=== PATIENT | female | born 1970 | race Caucasian/White ===

== ENCOUNTER 2018-01-08 13:04 | Observation (INO) | payer SELFPAY ==
[~2018-01-08] VITALS: Ht 170.2 cm; Wt 118.8 kg
--- NOTE | 2018-01-08 13:46 | ED EENT ---
History of Present Illness General Chief Complaint: Oral/Throat Problems Stated Complaint: ABSCESS IN NECK Source: patient Exam Limitations: no limitations (LILLIAN BLUE MD) History of Present Illness Date Seen by Provider: Jan 08, 2018 Time Seen by Provider: 13:41 Initial Comments The patient is a 47-year-old white female sent here from [place] by [facility]. She had been examined there after presenting with throat pain and was found to have an apparent mass or abscess which could be palpated at the angle of the mandible and was causing enough swelling to deviate the uvula to the right. She has no past history of dental abscesses or other head and neck infections. Symptoms began late Friday or certainly by early Friday Timing/Duration: yesterday Location: throat Prearrival Treatment: no prearrival treatment Associated Symptoms: sore throat (LILLIAN BLUE MD) Allergies and Home Medications Allergies Coded Allergies: No Known Drug Allergies (Unverified , 01/08/18) Patient Home Medication List Home Medication List Reviewed: Yes (LILLIAN BLUE MD) Review of Systems Constitutional: see HPI Eyes: No Symptoms Reported Ears: No Symptoms Reported Nose: no symptoms reported Mouth: see HPI Throat: swelling, painful swallowing Respiratory: no symptoms reported Cardiovascular: no symptoms reported Gastrointestinal: no symptoms reported (LILLIAN BLUE MD) Past Jwhcgaa-Vmbtta-Oqwghq Hx Patient Social History Recent Foreign Travel: No Contact w/Someone Who Travel: No (LILLIAN BLUE MD) Physical Exam Vital Signs Vital Signs - First Documented 01/08/18 13:08 Temp 98.7 Pulse 100 Resp 18 B/P (MAP) 172/113 (132) Pulse Ox 98 O2 Delivery Room Air (VICKEY LEONE APRN) General Appearance: mild distress Eyes: bilateral eye normal inspection Ears: bilateral ear auricle normal Nose: normal inspection Cardiovascular: normal peripheral pulses, regular rate, rhythm, no edema, no gallop, no JVD, no murmur Respiratory: chest non-tender, lungs clear, normal breath sounds, no respiratory distress, no accessory muscle use Gastrointestinal: normal bowel sounds, non tender, soft, no organomegaly, no pulsatile mass, tenderness, spleenomegaly There is a 3 cm palpable fluctuant tender area at the angle of the mandible on the left. Examination of the throat shows a contiguous mass effect in the pharynx with projection to the midline and deviation of the uvula to the right. (LILLIAN BLUE MD) Procedures/Interventions I&D : Blade Size: [address] Blue at the bedside I did anesthetize the leftposterior soft palate and tonsillar pillar region with 2% lidocaine with epinephrine totaling 1 mL..This area was then closed with an 18-gauge 1/2 inch needle guard at 1.5 cm. An area of sinus material was encountered I was able to aspirate about 1.5- 2mlof sinus material. Curved hemostats were then gently inserted about 1 cm into this area. Continued slow drainage of blood/sanguinous material. (VICKEY LEONE APRN) Progress/Results/Core Measures Lab Results Laboratory Tests Test 01/08/18 13:52 Range/Units White Blood Count 20.9 H 4.3-11.0 10^3/uL Red Blood Count 4.49 4.35-5.85 10^6/uL Hemoglobin 12.2 11.5-16.0 G/DL Hematocrit 38 35-52 % Mean Corpuscular Volume 84 80-99 FL Mean Corpuscular Hemoglobin 27 25-34 PG Mean Corpuscular Hemoglobin Concent 32 32-36 G/DL Red Cell Distribution Width 15.7 H 10.0-14.5 % Platelet Count 386 130-400 10^3/uL Mean Platelet Volume 10.2 7.4-10.4 FL Neutrophils (%) (Auto) 81 H 42-75 % Lymphocytes (%) (Auto) 10 L 12-44 % Monocytes (%) (Auto) 9 0-12 % Eosinophils (%) (Auto) 0 0-10 % Basophils (%) (Auto) 0 0-10 % Neutrophils # (Auto) 16.9 H 1.8-7.8 X 10^3 Lymphocytes # (Auto) 2.1 1.0-4.0 X 10^3 Monocytes # (Auto) 1.8 H 0.0-1.0 X 10^3 Eosinophils # (Auto) 0.1 0.0-0.3 10^3/uL Basophils # (Auto) 0.0 0.0-0.1 10^3/uL Neutrophils % (Manual) 82 % Lymphocytes % (Manual) 14 % Monocytes % (Manual) 4 % Blood Morphology Comment NORMAL (VICKEY LEONE APRN) My Orders Orders - VICKEY LEONE APRN Dexamethasone Injection (Decadron Inject (01/08/18 14:45) Cefuroxime Injection (Zinacef Injection) (01/08/18 14:45) Lidocaine/Epi 2% 1:100,000 (Xylocaine/Ep (01/08/18 14:45) Fentanyl Injection (Sublimaze Injection (01/08/18 14:45) (VICKEY LEONE APRN) Medications Given in ED Current Medications Medications Dose Ordered Sig/Gilmar Route Start Time Stop Time Status Last Admin Dose Admin Fentanyl Citrate 50 mcg ONCE ONCE IVP 01/08/18 14:45 01/08/18 14:46 DC 01/08/18 14:55 50 MCG Iohexol 100 ml ONCE ONCE IV 01/08/18 14:00 01/08/18 14:01 DC 01/08/18 14:16 100 ML Lidocaine/ Epinephrine 20 ml ONCE ONCE INJ 01/08/18 14:45 01/08/18 14:46 DC 01/08/18 14:58 20 ML Sodium Chloride 10 ml NEEDED PRN IV 01/08/18 14:00 01/08/18 14:16 10 ML Sodium Chloride 250 ml ONCE ONCE IV 01/08/18 14:00 01/08/18 14:01 DC 01/08/18 14:16 80 ML (VICKEY LEONE APRN) Vital Signs/I&O 01/08/18 13:08 Temp 98.7 Pulse 100 Resp 18 B/P (MAP) 172/113 (132) Pulse Ox 98 O2 Delivery Room Air (VICKEY LEONE APRN) Progress Note : Progress Note 1526- upon reexam, tthere is no active bleeding or oozing at this time from the incision. She states "it doesn't feel as swollen as it did". (VICKEY LEONE APRN) Departure Communication (Admissions) CT scan showed clear swelling in the area of the tonsil and structures lateral. Mr. Leone and I then explained to her the proposed drainage of this structure. This was then executed by Vasu with my assistance. The patient tolerated the procedure remarkably well. The aspirated specimen was taken to the lab for culture. 1610 white blood count returned at 21,000. Is therefore considered to be more prudent that she stay at least overnight for additional Decadron and antibiotics. I discussed this [facility]. She will accept an admission and Dr. Cuevas from ENT will be consulted (LILLIAN BLUE MD) Impression Primary Impression: left peritonsillar abscess Disposition: ADMITTED INPATIENT Condition: Improved Admissions Decision to Admit Reason: Admit from ER (General) Decision to Admit/Date: Jan 08, 2018 Time/Decision to Admit Time: 16:22 (LILLIAN BLUE MD) Departure-Patient Inst. Referrals: NO,LOCAL PHYSICIAN (PCP/Family) Primary Care Physician Images Head/Face 1 - Lesion (s) (LILLIAN BLUE MD) Mouth/Nose 1 - Swelling (LILLIAN BLUE MD) LILLIAN BLUE MD Jan 08, 2018 13:46 VICKEY LEONE APRN Jan 08, 2018 15:23
[2018-01-08 13:59] LABS: BASOPHILS % (AUTO) 0 % (0-10); EOSINOPHILS # (AUTO) 0.1 10^3/uL (0.0-0.3); EOSINOPHILS % (AUTO) 0 % (0-10); HEMATOCRIT 38 % (35-52); HEMOGLOBIN 12.2 G/DL (11.5-16.0); LYMPHOCYTES # (AUTO) 2.1 X 10^3 (1.0-4.0); LYMPHOCYTES % (AUTO) 10 % (12-44); MEAN CORPUSCULAR HEMOGLOBIN 27 PG (25-34); MEAN CORPUSCULAR HGB CONC 32 G/DL (32-36); MEAN CORPUSCULAR VOLUME 84 FL (80-99); MEAN PLATELET VOLUME 10.2 FL (7.4-10.4); MONOCYTES # (AUTO) 1.8 X 10^3 (0.0-1.0); MONOCYTES % (AUTO) 9 % (0-12); NEUTROPHILS # (AUTO) 16.9 X 10^3 (1.8-7.8); NEUTROPHILS % (AUTO) 81 % (42-75); PLATELET COUNT 386 10^3/uL (130-400); RED BLOOD COUNT 4.49 10^6/uL (4.35-5.85); RED CELL DISTRIBUTION WIDTH 15.7 % (10.0-14.5); WHITE BLOOD COUNT 20.9 10^3/uL (4.3-11.0)
[2018-01-08] MEDS ORDERED: CATHETER FLUSH 10 ML SYR IV PRN (14:00)
[2018-01-08] MEDS ORDERED: NS 250 ML (IVPB) BAG IV ONE (14:00)
[2018-01-08] MEDS ORDERED: IOHEXOL 350 MG/ML 100 ML (OMNIPAQUE 350) VIAL IV ONE (14:00)
[2018-01-08 14:30] LABS: LYMPHOCYTES % (MANUAL) 14 %; MONOCYTES % (MANUAL) 4 %; NEUTROPHILS % (MANUAL) 82 %; RBC MORPH NORMAL
[2018-01-08] MEDS ORDERED: fentaNYL INJECTION 100 MCG/2 ML AMP IVP ONE (14:45)
[2018-01-08] MEDS ORDERED: DEXAMETHASONE 10 MG/ML (DECADRON) 1 ML VIAL IV ONE (14:45)
[2018-01-08] MEDS ORDERED: CEFUROXIME INJECTION 1,500 MG in NS (IVPB) 100 ML IV ONE (14:45)
[2018-01-08] MEDS ORDERED: LIDOCAINE/EPI 2% 1:100,00 (XYLOCAINE) 20 ML VIAL INJ ONE (14:45)
--- NOTE | 2018-01-08 15:04 | Diagnostic Imaging Report ---
PROCEDURE: CT neck soft tissue with contrast. TECHNIQUE: Multiple contiguous axial images were obtained through the neck after the administration of contrast. INDICATION: Tender lump near angle of left mandible. COMPARISON: None. FINDINGS: There is marked enlargement of the left palatine tonsil which measures approximately 2.8 x 2.8 x 4.0 cm. There is a region of central low attenuation within this that measures approximately 0.6 cm in diameter. Edema and inflammatory changes extend inferiorly along the pharynx to the level of the vocal cords. There is also edema extending into the parapharyngeal space and about the left submandibular gland. No radiopaque sialoliths. There is moderate mass effect upon the nasopharynx and oropharynx. Enlarged left cervical level I lymph nodes measuring up to 1.0 cm in short axis dimension. Enlarged left cervical level II lymph nodes measuring up to 1.2 cm short axis dimension. Borderline left cervical level III lymph nodes. The tongue base and epiglottis are unremarkable. No fluid collections in the retropharyngeal or prevertebral spaces. The thyroid and parotid glands are unremarkable. Lung apices are clear. Mild spondylotic changes in the cervical spine. No acute osseous findings. The skull base, mastoids and visualized paranasal sinuses are unremarkable. IMPRESSION: Markedly enlarged left palatine tonsil containing a small region of low attenuation which may represent early abscess formation. There are inflammatory changes in the left parapharyngeal space, about the left submandibular gland and extending inferiorly along the pharynx to the level of the vocal cords. No other discrete fluid collections are identified. Left level I, II and III cervical lymphadenopathy. No necrotic lymph nodes are identified. Findings are most compatible with an infectious process. However, recommend followup to resolution as a neoplastic process can present in a similar fashion. Dictated by: Dictated on workstation # [id number]
[2018-01-08 17:00] VITALS: BP 174/86
[2018-01-08] MEDS: NS IV 1000 ML 1,000 ML IV SCH (17:42)
[2018-01-08 19:35] VITALS: BP 169/82
[2018-01-08] MEDS: DEXAMETHASONE 10 MG/ML (DECADRON) 1 ML VIAL IV SCH (21:52)
[2018-01-08] MEDS: CEFUROXIME 1.5 GM/NS 100 ML IVPB IV SCH ×2 (22:15)
[2018-01-09] VITALS: BP 144/86
[2018-01-09] MEDS: NS IV 1000 ML 1,000 ML IV SCH ×2 (03:56→13:22)
[2018-01-09 04:00] VITALS: BP 142/71
[2018-01-09] MEDS: DEXAMETHASONE 10 MG/ML (DECADRON) 1 ML VIAL IV SCH ×2 (05:25→13:27)
[2018-01-09] MEDS: CEFUROXIME 1.5 GM/NS 100 ML IVPB IV SCH ×4 (05:59→13:27)
--- NOTE | 2018-01-09 06:19 | Progress Note-Standard ---
Standard Progress Note Progress Notes/Assess & Plan Date Seen by Provider: Jan 09, 2018 Time Seen by Provider: 06:00 Progress/Assessment & Plan [facility] PAtient seen last pm and now this am doing much better no trismus pain improved/resolved not taking any pain medicine OP-left tonsil region swollen but sign less than last PM gryb-jqat-fcz-tender this am would rec staying and getting her 2pm dose of cefuroxime and then can discharge discharge prescriptions in chart note for work in chart if has treutrn of sympotms I have asked her to call-otherwise she can follow-up with [facility] in two weeks if she gets another abascessin the future then treatment followed by a tonsillectomy would be recommended Final Diagnosis Left Peritonsillar abscess VIRA VALDOVINOS MD Jan 09, 2018 6:19 am
[2018-01-09 07:30] LABS: BASOPHILS % (AUTO) 0 % (0-10); EOSINOPHILS % (AUTO) 0 % (0-10); HEMATOCRIT 35 % (35-52); HEMOGLOBIN 11.4 G/DL (11.5-16.0); LYMPHOCYTES # (AUTO) 1.1 X 10^3 (1.0-4.0); LYMPHOCYTES % (AUTO) 5 % (12-44); MEAN CORPUSCULAR HEMOGLOBIN 27 PG (25-34); MEAN CORPUSCULAR HGB CONC 33 G/DL (32-36); MEAN CORPUSCULAR VOLUME 84 FL (80-99); MEAN PLATELET VOLUME 10.5 FL (7.4-10.4); MONOCYTES # (AUTO) 0.7 X 10^3 (0.0-1.0); MONOCYTES % (AUTO) 3 % (0-12); NEUTROPHILS % (AUTO) 92 % (42-75); PLATELET COUNT 403 10^3/uL (130-400); RED BLOOD COUNT 4.17 10^6/uL (4.35-5.85); RED CELL DISTRIBUTION WIDTH 15.8 % (10.0-14.5); WHITE BLOOD COUNT 21.7 10^3/uL (4.3-11.0)
[2018-01-09 08:00] VITALS: BP 138/77
[2018-01-09] MEDS ORDERED: GLUC1CAP37 PO (08:55)
[2018-01-09 12:00] VITALS: BP 141/78
[2018-01-09] MEDS ORDERED: CEFU250T80 PO (12:18)
[2018-01-09] MEDS ORDERED: PRD20T PO (12:18)
--- NOTE | 2018-01-09 14:25 | Discharge Instructions ---
Discharge [facility] Discharge Medications New, Converted or Re-Newed RX: RX Given to Pt/Family (Dr. Cuevas gave written scripts to patient, electronic orders placed by me to document in chart) New Medications: Cefuroxime Axetil (Cefuroxime) 250 Mg Tablet 250 MG PO BID, #20 TAB 1 Refill Prednisone (Prednisone) 20 Mg Tab 0 PO UD, #12 TAB 0 Refills Take 2 tabs daily x 4 days, then 1 tab daily x 4 days then stop Continued Medications: Glucosa Ness 2Kcl/Chondroitin Ness (Glucosamine & Chondroitin Cap) 1 Each Capsule 1 CAP PO BID, CAP Patient Instructions Goal/Follow Up Appt: Follow up with Dr. Cuevas as directed. Return to The Hospital For: Fever, difficulty swallowing, difficulty breathing Activity & Diet Discharge Diet: No Restrictions Activity as Tolerated: Yes HOMERO QUIROZ MD Jan 09, 2018 09:29
--- NOTE | 2018-01-09 14:31 | Short Stay Summary ---
History of Present Illness History of Present Illness Reason for visit/HPI 47 yo female presented to ER after being sent from clinic due to peritonsillar abscess with difficulty swallowing. She notes that her 17 yo daughter had strep throat and 2 days ago she started having a sore throat, then yesterday morning she noted significant swelling in her neck and started having difficulty swallowing so she went to clinic to be seen. Date of Admission Jan 08, 2018 at 4:37 pm Date of Discharge January 09, 2018 Time Seen by Provider: 12:14 Attending Physician Homero Melendez MD Admitting Physician Yane,Local Physician Consult Allergies and Home Medications Allergies Coded Allergies: No Known Drug Allergies (Unverified , 01/08/18) Home Medications Cefuroxime Axetil 250 Mg Tablet, 250 MG PO BID Prescribed by: HOMERO MELENDEZ on 01/09/18 1218 Glucosa Ness 2Kcl/Chondroitin Ness 1 Each Capsule, 1 CAP PO BID, (Reported) Prednisone 20 Mg Tab, 0 PO UD Take 2 tabs daily x 4 days, then 1 tab daily x 4 days then stop Prescribed by: HOMERO MELENDEZ on 01/09/18 1218 Patient Home Medication List Home Medication List Reviewed: Yes Past Pkhalny-Kdmngl-Dxqaje Hx Patient Social History Alcohol Use: Denies Use Recreational Drug Use: No Smoking Status: Never a Smoker Physical Abuse Screen: No Sexual Abuse: No Recent Foreign Travel: No Contact w/other who traveled: No Recent Hopitalizations: No Recent Infectious Disease Expo: No Immunizations Up To Date Pediatric: No Seasonal Allergies Seasonal Allergies: Yes Surgeries Yes (3 C-SECTIONS) Section Respiratory No Currently Using CPAP: No Currently Using BIPAP: No Cardiovascular No Neurological No Reproductive System : No Sexually Transmitted Disease: No HIV/AIDS: No Genitourinary No Gastrointestinal No Musculoskeletal No Endocrine History of Endocrine Disorders: No HEENT History of HEENT Disorders: No Cancer No Did You Recieve Any Treatments: No Psychosocial History of Psychiatric Problem: No Integumentary History of Skin or Integumenta: No Blood Transfusions History of Blood Disorders: No Adverse Reaction to a Blood Tr: No Family Medical History Significant Family History: Heart Disease, Diabetes Family Hx: Patient reports no known family medical history. Constitutional: No fever EENTM: see HPI Respiratory: No cough Cardiovascular: No chest pain Gastrointestinal: no symptoms reported Genitourinary: no symptoms reported Musculoskeletal: other Skin: no symptoms reported Psychiatric/Neurological: No Symptoms Reported Physical Exam Vital Signs Vital Signs - First Documented 01/08/18 13:08 Temp 98.7 Pulse 100 Resp 18 B/P (MAP) 172/113 (132) Pulse Ox 98 O2 Delivery Room Air Capillary Refill : Less Than 3 Seconds General Appearance: No Apparent Distress Respiratory: Lungs Clear, Normal Breath Sounds Cardiovascular: Regular Rate, Rhythm, Systolic Murmur Extremity: Other (trace edema, many varicosities, hemosiderin staining) Neurologic/Psychiatric: Alert Skin: Normal Color, Warm/Dry Clinical Quality Measures DVT/VTE Risk/Contraindication: Risk Factor Score Per Nursin RFS Level Per Nursing on Admit: 4+=Very High Short Stay Diagnosis Discharge Diagnosis-Short Stay Admission Diagnosis: Peritonsillar abscess Final Discharge Diagnosis: Peritonsillar abscess Conclusion Labs Laboratory Tests 01/09/18 07:16: White Blood Count 21.7H, Red Blood Count 4.17L, Hemoglobin 11.4L, Hematocrit 35 , Mean Corpuscular Volume 84, Mean Corpuscular Hemoglobin 27, Mean Corpuscular Hemoglobin Concent 33, Red Cell Distribution Width 15.8H, Platelet Count 403H, Mean Platelet Volume 10.5H, Neutrophils (%) (Auto) 92H, Lymphocytes (%) (Auto) 5L, Monocytes (%) (Auto) 3, Eosinophils (%) (Auto) 0, Basophils (%) (Auto) 0, Neutrophils # (Auto) 20.0H, Lymphocytes # (Auto) 1.1, Monocytes # (Auto) 0.7, Eosinophils # (Auto) 0.0, Basophils # (Auto) 0.0 Microbiology 01/08/18 Gram Stain - Final, Resulted 01/08/18 Wound Culture - Preliminary, Resulted Strep, Beta Hemolytic Group A Conclusion/Plan Abscess drained by ENT and she felt much better next day with no swallowing or breathing difficulty. Murmur noted, echo done with report pending, but verbal report of no significant pathology. Discharged with antibiotics and steroids as per ENT recommendations. HOMERO MELENDEZ MD Jan 09, 2018 2:31 pm
== END 2018-01-09 14:21 | disposition home or self-care (01) ==
LOC: ER 13:07 → UNDOADMOB 16:37 → 4TH 16:37 → UNDODISOB 01-09 14:32
PROVIDERS: ADMIT Family Medicine; ATTEND Family Medicine
DX: J36 Peritonsillar abscess (principal); Z98.890 Other specified postprocedural states
CPT/HCPCS: 36415; 42700; 70491; 85007; 85025; 85027; 87070; 87075; 87077; 87205; 93306; 96365; 96375; G0378